=== PATIENT | female | born 1975 | race Hispanic/Latino ===

== ENCOUNTER 2022-05-02 08:22 | Emergency (ER) | payer OTHER ==
[~2022-05-02] VITALS: Ht 157.5 cm; Wt 79.8 kg
[2022-05-02] MEDS ORDERED: CELEBREX50 MG PO (08:46)
[2022-05-02] MEDS ORDERED: AMOX TR-K CLV1 EAC1 PO (10:50)
--- NOTE | 2022-05-03 12:55 | EKG ---
[facility] [address] [facility] [place], [place] [address] Signed Normal sinus rhythm Right axis deviation Abnormal ECG No previous ECGs available Confirmed by SHINE HWANG MD ([id number]) on 05/03/2022 12:55:29 PM Electronically Signed By: SHINE HWANG MD 05/03/22 1255 PATIENT NAME: CORNEJO MIRNA CHISHOLM Electrocardiogram DATE OF : 77 PHYSICIAN: SHINE HWANG MD REPORT #: [id number] REPORT IS CONFIDENTIAL AND NOT TO BE RELEASED WITHOUT AUTHORIZATION
== END 2022-05-02 11:15 | disposition home or self-care (01) ==
LOC: ED 08:22
DX: J18.9 Pneumonia, unspecified organism (principal); Z20.822 Contact with and (suspected) exposure to COVID-19
CPT/HCPCS: 36415; 71045; 80053; 83690; 83735; 84484; 85025; 87502; 93005; 99285-25; C9803; U0003